=== PATIENT | female | born 2000 | race Hispanic/Latino ===

== ENCOUNTER 2023-05-30 13:47 | Emergency (ER) | payer MEDICAID ==
[~2023-05-30] VITALS: Ht 160 cm; Wt 74.8 kg
[~2023-05-30 13:47] MED LIST: ACET-2079 PO; DOCU-116 PO; IBUP-2077 PO; PREN1TAB80 PO
[2023-05-30 15:08] LABS: ADD UA MICROSCOPIC YES; APPEARANCE,URINE CLEAR (CLEAR); BILIRUBIN,URINE NEGATIVE (NEGATIVE); COLOR,URINE LIGHT-YELLOW (YELLOW); GLUCOSE, URINE (UA) NEGATIVE (NEGATIVE); KETONES,URINE 5 mg/dL (NEGATIVE); LEUKOCYTE ESTERASE ,URINE 25 Leu/uL (NEGATIVE); NITRATE,URINE NEGATIVE (NEGATIVE); OCCULT BLOOD,URINE NEGATIVE (NEGATIVE); PH,URINE 5.5 (5.0-8.0); PROTEIN,URINE NEGATIVE (NEGATIVE); UROBILINOGEN,URINE 0.2 mg/dL (0.2-1.0)
[2023-05-30 15:12] LABS: HCG,QUALITATIVE URINE NEGATIVE (NEGATIVE)
[2023-05-30 15:13] LABS: BACTERIA,URINE RARE /HPF (None Seen); MUCUS,URINE RARE LPF (None Seen); RBC,URINE 0-1 /HPF (0-1); SQUAMOUS EPITHELIAL CELL,UR FEW /HPF (0-2)
[2023-05-30 15:32] LABS: BASOPHILS # (AUTO) 0.02 K/uL (0.00-0.20); BASOPHILS % (AUTO) 0.1 % (0.0-5.0); EOSINOPHILS # (AUTO) 0.05 K/uL (0.00-0.70); EOSINOPHILS % (AUTO) 0.3 % (0.0-8.0); HEMATOCRIT 41.5 % (36-48); IMMATURE GRANULOCYTE ABSOLUTE 0.06 K/uL (0-1); LYMPHOCYTES # (AUTO) 1.3 K/uL (1.0-4.8); LYMPHOCYTES % (AUTO) 8.4 % (21.0-51.0); MEAN CORPUSCULAR HEMOGLOBIN 29.7 pg (27.0-33.0); MEAN CORPUSCULAR HGB CONC 32.5 g/dL (32.0-36.0); MEAN CORPUSCULAR VOLUME 91.2 fL (79-99); MONOCYTES # (AUTO) 0.7 K/uL (0.1-1.0); MONOCYTES % (AUTO) 4.3 % (3.0-13.0); NEUTROPHILS % (AUTO) 86.5 % (40.0-77.0); PLATELET COUNT (AUTO) 228 K/uL (130-400); RED BLOOD CELL COUNT(AUTO) 4.55 MIL/uL (4.00-5.50)
[2023-05-30 15:46] LABS: CREATININE 0.7 mg/dL (0.5-1.5)
[2023-05-30] MEDS: KETOROLAC 30MG VIAL (30MG/ML) IVP ONE (18:20)
[2023-05-30] MEDS: MORPHINE 2 MG SYG IVP ONE (18:35)
[2023-05-30] MEDS: ONDANSETRON 4MG INJ IVP ONE (18:35)
[2023-05-30] MEDS ORDERED: IOHEXOL 350 MG/ML 100ML INFUS..BTL IV ONE (19:26)
[2023-05-30] MEDS ORDERED: OMEP40CA21 PO (22:12)
[2023-05-30] MEDS ORDERED: ONDA4TAB10 PO (22:12)
[2023-05-30] MEDS ORDERED: DICY20TA2 PO (22:12)
[2023-05-30 22:20] VITALS: BP 125/75; PULSE 69; RESP 18; O2SAT 99
[2023-05-30] MEDS: ZOSYN 3.375GM +NS 50ML IVPB ONE (22:27)
== END 2023-05-30 23:13 | disposition home or self-care (01) ==
LOC: EDH 13:47
DX: K76.0 Fatty (change of) liver, not elsewhere classified (principal); K80.70 Calculus of gallbladder and bile duct without cholecystitis without obstruction; R73.9 Hyperglycemia, unspecified; Z79.899 Other long term (current) drug therapy; Z98.890 Other specified postprocedural states; Z88.8 Allergy status to other drugs, medicaments and biological substances
CPT/HCPCS: 99285; 74177; 96365; 76705; 96375; 80048; 83690; 85025; 87040 ×2; 81001; 81025; 36415; J2270; J2405; J1885; J2543; Q9967